=== PATIENT | female | born 1970 | race Caucasian/White ===

== ENCOUNTER 2020-01-19 09:22 | Emergency (ER) | payer OTHER ==
[~2020-01-19] VITALS: Ht 160 cm; Wt 75.0 kg
--- NOTE | 2020-01-19 09:45 | PHYS DOC ---
General Adult EDM: Chief Complaint: COUGH HPI: HPI: 49 yo F PMH anxiety and endometriosis (s/p SHO-BSO), presents to the ed with c/o nasal congestion, body aches, fever, dry cough, fatigue, lack of taste or smell for the past 2 days, no relief with NyQuil and Mucinex. Works at [employer]-employees have tested positive for covid. Some associated nausea. No h/o lung or cardiac disease. Does report bilateral upper chest wall pain, worsened with deep respirations and coughing. Review of Systems: Review of Systems: Constitutional: Denies aphasia, facial droop Eyes: Denies change in visual acuity HENT: Denies rhinorrhea, blurry vision, red eye/eye discharge Respiratory: Denies hemoptysis or sputum Cardiovascular: Denies syncope or edema GI: Denies abdominal pain, vomiting, bloody stools or diarrhea : Denies dysuria or hematuria Musculoskeletal: Denies back pain or joint pain or leg swelling Integument: Denies rash Neurologic: Denies headache, focal weakness or sensory changes, no neck stiffness Endocrine: Denies polyuria or polydipsia Lymphatic: Denies swollen glands Psychiatric: Denies depression or anxiety Heart Score: Risk Factors: Risk Factors: DM, Current or recent (<one month) smoker, HTN, HLP, family history of CAD, obesity. Risk Scores: Score 0 - 3: 2.5% MACE over next 6 weeks - Discharge Home Score 4 - 6: 20.3% MACE over next 6 weeks - Admit for Clinical Observation Score 7 - 10: 72.7% MACE over next 6 weeks - Early Invasive Strategies Physical Exam: PE: Constitutional: Well developed, well nourished, flu appearing, non-toxic appearance. [] HENT: Normocephalic, atraumatic, , oropharynx moist, no oral exudates-mild pharyngeal erythema, nose normal. [] Eyes: EOMI, conjunctiva normal, no discharge. [] Neck: Normal range of motion, supple, Cardiovascular: S1-S2 present Lungs & Thorax: Speaking in full sentences, bilateral equal chest rise, 100% on room air Abdomen: soft, no tenderness, Skin: Warm, dry, no erythema, no rash. [] Back: No tenderness, no CVA tenderness. [] Extremities: No tenderness, no cyanosis, no clubbing, ROM intact, no LE edema. [] Neurologic: Alert and oriented X 3, normal motor function, normal sensory function, no focal deficits noted. [] Psychologic: Affect normal, judgement normal, mood normal. [] EKG: EKG: Sinus rhythm at 96 bpm, no axis deviation, normal intervals, T wave inversion lead III, no ST elevations or ST depressions Radiology/Procedures: Radiology/Procedures: IMAGING REPORT Signed PATIENT: DELILAH DONAHUE ACCOUNT: [id number] : 1970 LOCATION: ER AGE: 49 SEX: F EXAM STATUS: REG ER ORD. PHYSICIAN: DARSHAN MCFADDEN DO REASON: SHORTNESS OF BREATH PROCEDURE: CHEST AP ONLY CHEST AP ONLY History: Shortness of breath Comparison: None. Findings: Single view of the chest is submitted. There is no infiltrate, pneumothorax, or effusion. The pericardial cardiac silhouette is within normal limits in size. Impression: 1. There is no radiographic evidence of acute cardiopulmonary disease. Electronically signed by: Zenia Chamberlain MD (01/19/2020 9:57 AM) [facility] DICTATED AND SIGNED BY: ZENIA CHAMBERLAIN MD DATE: 01/19/20 0957 CC: PCP,NO; DARSHAN MCFADDEN DO ~ Course & Med Decision Making: Course & Med Decision Making Pertinent Labs and Imaging studies reviewed. (See chart for details) COVID-19 CRITERIA: The patient was evaluated during the global COVID-19 pandemic, and that diagnosis was suspected/considered upon their initial presentation. Their evaluation, treatment and testing was consistent with curre nt guidelines for patients who present with complaints or symptoms that may be related to COVID-19. Concern for upper respiratory infection x 2 days, could represent Covid versus other. Rapid strep and influenza testing are negative. Patient does have l eukocytosis of 13 and elevated CRP which is nonspecific. Recommend conservative measures with oral hydration, antipyretics, rest. Strict ED return precautions for difficulties breathing, chest pain, strokelike symptoms, severe headache or neck stiffness. Encouraged urgent outpatient follow-up with PMD. Life- threatening processes were considered but are low suspicion at this time, given history and physical exam. Pt was educated on all prescription medications and adverse effects. All patient's questions were answered and pt was stable at time of discharge. Life/limb-threatening differential includes but is not limited to, surgical abdomen (appendicitis, cholecystitis, diverticulitis, inflammatory bowel disease, abscess, perforation), meningitis, encephalitis, Wesley's angina, necrotizing fasciitis, endocarditis, life-threatening rash, viral syndrome, gynecologic and urologic emergencies (endometritis, ovarian/testicular torsion, TOA, obstructive nephropathy, prostatitis), head and neck abscess, sepsis or shock, or respiratory failure. I spoken with the patient and her caregivers. I explained the patient's condition, diagnoses and treatment plan based on the information available to me at this time. I have answered the patient and her caregiver's questions and addressed any concerns. The patient and her caregivers have a good understanding of patient's diagnosis, condition and treatment plan as can be expected at this point. Vital signs have been stable. Patient's condition is stable and appropriate for discharge from the emergency department. Patient will pursue further outpatient evaluation with primary care physician or other designated or consulting physician as outlined in the discharge instructions. The patient and/or caregivers are agreeable to this plan of care and follow-up instructions have been explained in detail. The patient and/or caregivers have received these instructions in written form and have expressed an understanding of the discharge instructions. The patient and/or caregivers are aware that any significant change of condition or worsening of symptoms should prompt immediate return to this or the closest emergency department or call to 911. Shraddha Disclaimer: Shraddha Disclaimer: This electronic medical record was generated, in whole or in part, using a voice recognition dictation system. Departure Departure: Impression: Primary Impression: URI (upper respiratory infection) Additional Impression: Suspected COVID-19 virus infection Disposition: 01 DC HOME SELF CARE/HOMELESS Condition: STABLE Referrals: PCP,NO (PCP) FOLLOW UP WITH FAMILY MEDICINE: Complete [facility], [facility] [address] [address] [address], [facility] Instructions: Upper Respiratory Infection, Adult Additional Instructions: You have been tested for or diagnosed with COVID-19. It is an infection caused by a new type of coronavirus. COVID-19 will cause cold-like or mild flu symptoms in most. It can cause more severe symptoms like problems breathing in some. There is no treatment for COVID-19. The body will clear the infection over time. Self-care will help to ease discomfort. Steps to Take: Self-Care Rest as needed. Healthy habits may help you feel better. Steps include: Choose healthy foods including fruits and vegetables. Drink water throughout the day. Get plenty of sleep each night. If you smoke, try to quit. It may ease breathing. Avoid alcohol. Keep Others Healthy The virus can spread to others. Droplets are released every time you sneeze or cough. The droplets can get into the mouth, nose, or eyes of people near you and lead to infection. To lower the chances of spreading COVID-19 to others: Stay at home until your doctor has said it is safe to leave. If you tested positive this will mean staying isolated until both of the following are true: At least 7 days have passed since the start of illness. You are free of fever for at least 72 hours without the use of medicine. During this time: - Avoid public areas, events, or transportation. Do not return to work or school until your doctor has said it is safe to do so. - Call ahead if you need to go to a medical center. Let them know you may have COVID-19. It will help them guide you where to go. They may also ask you to wear a facemask when you come to the office. - If you call for emergency medical services, let them know you may have COVID- 19. While at home: - Try to avoid close contact with others. Stay about 6 feet away. - If possible, spend most of your time in a separate room from others. - Use a face mask if you will be in close contact with others such as sharing a room or vehicle. - Have someone wipe down common surfaces in the home. Use household self sealing fuel tank builder every day on areas like doorknobs, counters, or sinks. - Cough or sneeze into a tissue. Throw the tissue away right after use. If a tissue is not available, cough or sneeze into your elbow. - Wash your hands often. Wash them after sneezing or coughing. Use soap and water and wash for at least 20 seconds. Alcohol based hand connie cleaner can be used if soap and water is not available. - Do not prepare food for others. Avoid sharing personal items like forks, spoons, or toothbrushes. - Avoid close contact with pets while you are sick. There is no evidence of the virus passing to pets. This is a safety step until more is known about this virus. Isolation can be frustrating. Social interaction can help. Keep in touch with friends and family through phone and tech options. You can still interact with others in your home, just keep a safe distance of about 6 feet. Follow-up: Your doctors office will check in with you to see if there are any changes in your health. You may be asked to keep track of symptoms to share with them. They will also let you know when you are clear to be in public again. Problems to Look Out For: Contact your doctor if your recovery is not going as you expect. Get emergency care if you have problems such as: - Trouble breathing - Nonstop chest pain or pressure - Changes in awareness, confusion, or problems waking - Lips or face have bluish color - Worsening of symptoms If you think you have an emergency, call for emergency medical services right away. As taken from [facility] Ibuprofen (IBUPROFEN) 600 Mg Tablet 600 MG PO Q6HRS for headache, #20 TAB Prov: DARSHAN MCFADDEN DO 01/19/20 DARSHAN MCFADDEN DO Jan 19, 2020 09:45
[2020-01-19] MEDS ORDERED: KETOROLAC 15 MG/ML VIAL. ONE (09:48)
[2020-01-19] MEDS ORDERED: KETOROLAC 15 MG/ML VIAL. IVP ONE (10:00)
[2020-01-19] MEDS ORDERED: IV NORMAL SALINE 1,000ML 1,000 ML IV ONE (10:00)
--- NOTE | 2020-01-19 10:00 | RAD ---
CHEST AP ONLY History: Shortness of breath Comparison: None. Findings: Single view of the chest is submitted. There is no infiltrate, pneumothorax, or effusion. The pericardial cardiac silhouette is within normal limits in size. Impression: 1. There is no radiographic evidence of acute cardiopulmonary disease. Electronically signed by: Kwadwo Dotson MD (01/19/2020 9:57 AM) [facility]
--- NOTE | 2020-01-19 10:10 | EKG ---
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
[2020-01-19 10:11] VITALS: BP 141/92
[2020-01-19 10:42] LABS: BASO % 0 % (0-3); EOS # 0.1 x10^3/uL (0.0-0.7); EOS % 1 % (0-3); HEMATOCRIT 43.2 % (36.0-47.0); HEMOGLOBIN 14.5 g/dL (12.0-15.5); LYMPH # 0.8 x10^3/uL (1.0-4.8); LYMPH % 6 % (24-48); MEAN CORPUSCULAR HEMOGLOBIN 31 pg (25-35); MEAN CORPUSCULAR HGB CONC 34 g/dL (31-37); MEAN CORPUSCULAR VOLUME 91 fL (79-100); MONO # 0.6 x10^3/uL (0.0-1.1); MONO % 5 % (0-9); NEUT # 11.4 x10^3uL (1.8-7.7); NEUT % 88 % (31-73); PLATELET COUNT 300 x10^3/uL (140-400); RED BLOOD COUNT 4.75 x10^6/uL (3.50-5.40); RED CELL DISTRIBUTION WIDTH 13.1 % (11.5-14.5)
[2020-01-19 10:56] LABS: CALCIUM 9.3 mg/dL (8.5-10.1); GFR 59.4; POTASSIUM 4.1 mmol/L (3.5-5.1)
[2020-01-19 11:09] LABS: ALBUMIN 4.2 g/dL (3.4-5.0); ALBUMIN/GLOBULIN RATIO 1.1 (1.0-1.7); C REACTIVE PROTEIN 39.7 mg/L (0-3.3); TOTAL BILIRUBIN 0.6 mg/dL (0.2-1.0); TOTAL PROTEIN 8.1 g/dL (6.4-8.2)
[2020-01-19 11:43] LABS: INFLUENZA A PATIENT NEGATIVE (NEGATIVE); INFLUENZA B PATIENT NEGATIVE (NEGATIVE)
[2020-01-19] MEDS ORDERED: IBUP600T16 PO (11:48)
--- NOTE | 2020-01-23 09:04 | NUR ---
IP: notified patient of COVID result.
== END 2020-01-19 12:04 | disposition home or self-care (01) ==
LOC: ER 09:22
DX: J06.9 Acute upper respiratory infection, unspecified (principal); Z20.828 Contact with and (suspected) exposure to other viral communicable diseases
CPT/HCPCS: 36415; 71045; 80053; 83605; 83880; 84484; 85025; 86140; 87040; 87070; 87804; 87880; 93005; 96361; 96374; 99285; C9803; J1885; J7030; U0003